=== PATIENT | female | born 1995 | race Caucasian/White ===

== ENCOUNTER 2020-09-06 10:30 | Day surgery (SDC) | payer OTHER, SELFPAY ==
[2020-09-06 11:19] VITALS: BMI 19.5
--- NOTE | 2020-09-06 11:20 | P.CONAN_ITS ---
HPI - Anesthesia Eval Consult details Narrative: 25 yo female patient here for EGD FOR[facility], [facility] Family History Family history of problems with anesthesia: No Surgical History Surgical History (Updated 09/06/20 @ 12:03 by Marni Tierney) S/P S/P colonoscopy S/P eye surgery History of Problems with Anesthesia: No Social History Social History Smoking Status: Former smoker Use of substances other than those prescribed or required for medical reasons: No Advance Directives: No Advance Directives Information Provided: Yes Meds Allergies Allergy/AdvReac Type Severity Reaction Status Date / Time amoxicillin Allergy Rash Verified 09/06/20 11:17 Active Medications: Current Medications Generic Name Dose Route Start Last Admin Trade Name Freq PRN Reason Stop Dose Admin Lactated Ringer's 1,000 mls @ 50 mls/hr 09/06/20 11:30 Lr IV .Q20H SHEFALI Exam Exam Date and Time: September 06, 2020 1120 Height,Weight and Vital Signs: Vital Signs Temp Pulse Resp BP Pulse Ox 09/06/20 11:37 97.7 F 79 16 103/71 99 Pertinent Lab Results Pertinent Lab Results: Lab Results 09/06/20 Range/Units 11:20 Urine Test NEGATIVE (NEGATIVE) Airway Mallampati Class: II TM Dist: >3cm Neck ROM: Full Loose/Missing/Broken Teeth: No (Dental implants) Heart: RRR Lungs: CTAB Assessment and Plan Assessment Anesthesia Assessment: Anesthesia Plan Discussed and Chart Reviewed Final Anesthetic Review NPO: Yes ASA Class: II Final Preanesthetic Review: No Changes in Pt Med Stat, Meds/Allgs Chart Reviewed, Consent Obtained/Reviewed and Anes Risks/Benef Reviewed Patient Risk: Low Procedure Risk: Low Assessment/Block/Sedation in SS: Assess/Block/Sedation-SS Anesthetic Plan Anesthetic Plan: MAC: Disposition: Standard PACU
[2020-09-06 11:33] LABS: UPreg QC Valid YES; Urine Pregnancy NEGATIVE (NEGATIVE)
[2020-09-06 11:37] VITALS: BP 103/71; PULSE 79; RESP 16; TEMP 36.5; O2SAT 99
[2020-09-06] MEDS: Lactated Ringers 1,000 ML 50 ML IV (11:45)
[2020-09-06 12:08] VITALS: BP 101/51; PULSE 88; RESP 16; TEMP 37.3; O2SAT 98
--- NOTE | 2020-09-06 12:10 | MHC.SHP ---
Pre-Procedural Eval Section A The patient is an INPATIENT: No Changes since office visit: No Cold of Flu in the past 2 weeks, No New Medical Problems, No Changes in Medication and No Patient answered all questions The History & Physical has been completed within 30 days and I have reviewed it.: Yes Section B Chief Complaint: epigastric pain,diarrhea Allergies: Allergies Allergy/AdvReac Type Severity Reaction Status Date / Time amoxicillin Allergy Rash Verified 09/06/20 11:17 Plan I have reviewed the history and physical and performed a pertinent physical examination on my patient. No changes have occurred unless specified.
--- NOTE | 2020-09-06 12:11 | PM.OP ---
Brief Operative Note Date of Service: 09/06/20 Pre-op diagnosis: epigastric pain diarrhea Post-op diagnosis: same (normal) Procedure: egd Surgeon: Brian Anderson Anesthesia: MAC Estimated blood loss (mL): 5 Pathology: other (bx antrum, egd, duodenum) Condition: stable Disposition: PACU
[2020-09-06 12:23] VITALS: BP 98/62; PULSE 60; RESP 17; TEMP 36.2; O2SAT 100
--- NOTE | 2020-09-06 12:59 | OP_ITS ---
SURGEON: Brian Anderson MD INDICATIONS: Epigastric pain and diarrhea. PREOPERATIVE DIAGNOSIS: POSTOPERATIVE DIAGNOSIS: PROCEDURE PERFORMED: Upper endoscopy with biopsy. ESTIMATED BLOOD LOSS: COMPLICATIONS: ANESTHESIA: ASSISTANTS: SPECIMENS: MEDICATIONS: Monitored anesthesia care. DESCRIPTION OF PROCEDURE: History and physical performed. The risks and benefits of the procedure were explained to the patient. Informed consent was obtained. The patient was placed in a left lateral decubitus position. The Olympus video gastroscope was introduced into the esophagus, stomach, and duodenum. Examination was performed and the scope was removed. She tolerated the procedure well and was taken to the recovery area in stable condition. FINDINGS: ESOPHAGUS: The esophagus was normal. There was no esophagitis. STOMACH: The stomach showed no evidence of masses, ulcers, or polyps. DUODENUM: The bulb and second portion were normal. Biopsies were obtained from the EG junction, antrum, and duodenum. IMPRESSION: Normal upper endoscopy. RECOMMENDATION: Follow up the biopsy results. Brian Anderson MD BC/MODL / [id number]
== END 2020-09-06 12:51 | disposition home or self-care (01) ==
PROVIDERS: Anesthesiology; Visit Provider Internal Medicine Gastroenterology
PROC: 0DJ08ZZ Inspection of Upper Intestinal Tract, Via Natural or Artificial Opening Endoscopic (ICD-10-PCS; CPT 43235; principal; 2020-09-06 12:10)
DX: R10.13 Epigastric pain (principal); R19.7 Diarrhea, unspecified; Z87.891 Personal history of nicotine dependence
CPT/HCPCS: 43239; 81025; 88305; 88342; J3010